=== PATIENT | male | born 1990 ===

== ENCOUNTER 2017-10-10 00:34 | Emergency (ER) | payer MEDICAID, OTHER ==
[2017-10-10 00:34] VITALS: BMI 25.7
[2017-10-10 00:43] VITALS: TEMP 98
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
[2017-10-10 01:27] LABS: BASO # 0.1 K/uL (0.0-0.2); BASO % 0.7 % (0.0-2.0); EOS # 0.3 K/uL (0.0-0.7); EOS % 2.8 % (0.0-4.0); HEMATOCRIT 44.3 % (35.0-51.0); LYMPH # 2.2 K/uL (1.0-4.3); LYMPH % 20.8 % (20.0-40.0); MEAN CELL VOLUME 84.9 fL (80.0-94.0); MEAN CORPUSCULAR HEMOGLOBIN 29.1 pg (27.0-31.0); MEAN CORPUSCULAR HGB CONC 34.3 g/dL (33.0-37.0); MEAN PLATELET VOLUME 8.8 fL (7.2-11.7); MONO # 0.8 K/uL (0.0-0.8); MONO % 7.4 % (0.0-10.0); RED CELL DISTRIBUTION WIDTH 14.1 % (11.5-14.5); WHITE BLOOD COUNT 10.5 K/uL (4.8-10.8)
[2017-10-10 01:41] LABS: ALB/GLOB RATIO 1.1 (1.0-2.1); ALCOHOL SERUM < 10 mg/dl (0-10); ALKALINE PHOSPHATASE 88 U/L (38-126); ALT/SGPT 166 U/L (21-72); AST/SGOT 329 U/L (17-59); BILIRUBIN,TOTAL 0.5 mg/dL (0.2-1.3); BLOOD UREA NITROGEN 14 mg/dL (9-20); CALCIUM 8.6 mg/dl (8.6-10.4); CARBON DIOXIDE 30 mmol/L (22-30); CHLORIDE 103 mmol/L (98-107); GFR AFRICAN-AMERICAN > 60; GLUCOSE,RANDOM 93 mg/dL (75-110); POTASSIUM 3.4 mmol/L (3.6-5.2); SODIUM 140 mmol/L (132-148); TOTAL PROTEIN 8.1 g/dL (6.3-8.3)
[2017-10-10 02:45] LABS: RBC URINE < 1 /hpf (0-3); URINE BILIRUBIN NEGATIVE (NEGATIVE); URINE BLOOD NEGATIVE (NEGATIVE); URINE COLOR Yellow (YELLOW); URINE GLUCOSE (UA) NORMAL (Normal); URINE KETONE NEGATIVE (NEGATIVE); URINE LEUKOCYTE ESTERASE NEG Leu/uL (Negative); URINE PROTEIN NEGATIVE (NEGATIVE); URINE UROBILINOGEN NORMAL mg/dL (0.2-1.0); WBC URINE 1 /hpf (0-5)
[2017-10-10 09:14] VITALS: BP 123/81; PULSE 68; RESP 16; O2SAT 100
== END 2017-10-10 09:21 | disposition home or self-care (01) ==
LOC: C.ER 00:34
DX: F16.10 Hallucinogen abuse, uncomplicated (principal); Z87.891 Personal history of nicotine dependence
CPT/HCPCS: 80053; 80320; 80324; 80345; 80346; 80349; 80353; 80358; 80361; 81001; 83992; 85025; 96372; 99285; J1630; J2060

== ENCOUNTER 2017-10-17 05:11 | Emergency (ER) | payer OTHER ==
[2017-10-17] MEDS ORDERED: DiphenhydrAMINE 50 mg/ml Inj ONE (05:38)
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
[2017-10-17] MEDS ORDERED: DiphenhydrAMINE 50 mg/ml Inj IM STA (05:45)
[2017-10-17 05:46] VITALS: BMI 25.8
[2017-10-17 06:33] LABS: RBC URINE 1 /hpf (0-3); URINE BACTERIA RARE (<OCC); URINE BILIRUBIN NEGATIVE (NEGATIVE); URINE BLOOD NEGATIVE (NEGATIVE); URINE COLOR Yellow (YELLOW); URINE GLUCOSE (UA) NORMAL (Normal); URINE KETONE NEGATIVE (NEGATIVE); URINE LEUKOCYTE ESTERASE NEG Leu/uL (Negative); URINE PROTEIN NEGATIVE (NEGATIVE); URINE UROBILINOGEN NORMAL mg/dL (0.2-1.0); WBC URINE 1 /hpf (0-5)
[2017-10-17 06:33] LABS: BASO % 0.5 % (0.0-2.0); EOS # 0.2 K/uL (0.0-0.7); EOS % 1.7 % (0.0-4.0); HEMATOCRIT 42.3 % (35.0-51.0); LYMPH # 1.2 K/uL (1.0-4.3); LYMPH % 12.1 % (20.0-40.0); MEAN CELL VOLUME 85.7 fL (80.0-94.0); MEAN CORPUSCULAR HEMOGLOBIN 29.2 pg (27.0-31.0); MEAN PLATELET VOLUME 8.5 fL (7.2-11.7); MONO # 0.7 K/uL (0.0-0.8); MONO % 7.2 % (0.0-10.0); RED CELL DISTRIBUTION WIDTH 13.8 % (11.5-14.5); WHITE BLOOD COUNT 9.9 K/uL (4.8-10.8)
[2017-10-17 06:46] LABS: ALB/GLOB RATIO 1.6 (1.0-2.1); ALCOHOL SERUM < 10 mg/dl (0-10); ALKALINE PHOSPHATASE 74 U/L (38-126); ALT/SGPT 58 U/L (21-72); AST/SGOT 30 U/L (17-59); BILIRUBIN,TOTAL 0.3 mg/dL (0.2-1.3); BLOOD UREA NITROGEN 13 mg/dL (9-20); CALCIUM 8.1 mg/dl (8.6-10.4); CARBON DIOXIDE 27 mmol/L (22-30); CHLORIDE 97 mmol/L (98-107); GFR AFRICAN-AMERICAN > 60; GLUCOSE,RANDOM 91 mg/dL (75-110); POTASSIUM 3.4 mmol/L (3.6-5.2); SODIUM 134 mmol/L (132-148); TOTAL PROTEIN 6.6 g/dL (6.3-8.3)
[2017-10-17 07:55] VITALS: TEMP 98.1
[2017-10-17 11:16] VITALS: BP 112/64; PULSE 60; RESP 13; O2SAT 96
== END 2017-10-17 12:23 | disposition home or self-care (01) ==
LOC: C.ER 05:11
DX: F19.10 Other psychoactive substance abuse, uncomplicated (principal); I10 Essential (primary) hypertension; F17.210 Nicotine dependence, cigarettes, uncomplicated
CPT/HCPCS: 80053; 80320; 80324; 80345; 80346; 80349; 80353; 80358; 80361; 81001; 83992; 85025; 96372; 99285; J1200; J2060; J3486

== ENCOUNTER 2017-12-14 23:45 | Emergency (ER) | payer OTHER ==
[2017-12-14 23:46] VITALS: BMI 25.8
[2017-12-15 00:17] VITALS: O2SAT 97
--- NOTE | 2017-12-15 02:07 | C.PDOC ---
History Of Present Illness 27 year old male presents to the ED for evaluation of chronic right ankle pain status post fall injury 2 years ago. Patient states that he has not been follow up with doctors for his ankle pain. He complains of pain with weightbearing. He is requesting narcotic pain medication. No other acute complaints at this time. Time Seen by Provider: 12/15/17 00:34 Chief Complaint (Nursing): Lower Extremity Problem/Injury History Per: Patient History/Exam Limitations: no limitations Onset/Duration Of Symptoms: Other (Chronic x2 years) Current Symptoms Are (Timing): Still Present Recent travel outside of the [place]: No - Ankle/Foot Description Of Injury: Fell (2 years ago) Past Medical History Reviewed: Historical Data, Nursing Documentation, Vital Signs Vital Signs: Last Vital Signs Temp 98 F 12/15/17 02:52 Pulse 78 12/15/17 02:52 Resp 20 12/15/17 02:52 BP 130/80 12/15/17 02:52 Pulse Ox 97 12/15/17 04:41 - Medical History PMH: Anxiety, Arthritis (right ankle), Asthma ( A CHILD), Back Problems ( Chronic), Bipolar Disorder, Depression, HTN, Schizophrenia, Chronic Pain (Back) Denies: Chronic Kidney Disease - [facility] Procedures APPLICATION OF SPLINT (03/18/14) ELEVATE SKULL FX FRAGMNT (08/20/14) GROUP PSYCHOTHERAPY (11/26/16) INDIVIDUAL PSYCHOTHERAPY, SUPPORTIVE (11/26/16) INJECT/INFUSE NEC (08/14/14) MEDICATION MANAGEMENT (11/26/16) Family History: States: Unknown Family Hx - Social History Hx Tobacco Use: Yes Hx Alcohol Use: Yes Hx Substance Use: Yes - Immunization History Hx Tetanus Toxoid Vaccination: Yes Hx Influenza Vaccination: Yes Hx Pneumococcal Vaccination: No Review Of Systems Constitutional: Negative for: Fever, Chills ENT: Negative for: Ear Pain, Throat Pain Cardiovascular: Negative for: Chest Pain Musculoskeletal: Positive for: Other (Ankle pain, Rt) Skin: Negative for: Rash Neurological: Negative for: Headache Physical Exam - Physical Exam Appears: Well, Non-toxic, No Acute Distress Skin: Normal Color, Warm, Dry Head: Atraumatic, Normacephalic Eye(s): bilateral: Normal Inspection, PERRL, EOMI Oral Mucosa: Moist Back: Normal Inspection Extremity: Other (right ankle bulky jt -mildly tender, no effusion, no erythema , no calf tenderness, good cap refill) Neurological/Psych: Oriented x3, Normal Speech Gait: Steady ED Course And Treatment O2 Sat by Pulse Oximetry: 97 Progress Note: Advised patient to follow up with orthapedic surgeon. Disposition Counseled Patient/Family Regarding: Diagnosis, Need For Followup - Disposition Referrals: Jackie Brice MD [Staff Provider] - Disposition: HOME/ ROUTINE Disposition Time: 02:05 Condition: STABLE Additional Instructions: Please follow up with Ortho- Call Dr Brice as preferred tylenol or advil for pain Return to ER if worse Instructions: Joint Pain Forms: [facility] (Macedonian) - Clinical Impression Clinical Impression: Joint pain, Ankle pain - Scribe Statement The provider has reviewed the documentation as recorded by the Scribe (Shane De La Cruz) Provider Attestation: All medical record entries made by the Scribe were at my direction and personally dictated by me. I have reviewed the chart and agree that the record accurately reflects my personal performance of the history, physical exam, medical decision making, and the department course for this patient. I have also personally directed, reviewed, and agree with the discharge instructions and disposition.
[2017-12-15 02:53] VITALS: BP 130/80; PULSE 78; RESP 20; TEMP 98
== END 2017-12-15 02:52 | disposition home or self-care (01) ==
LOC: C.ER 23:45
DX: M25.571 Pain in right ankle and joints of right foot (principal)

== ENCOUNTER 2018-02-22 06:28 | Emergency (ER) | payer MEDICAID, OTHER ==
[2018-02-22 06:28] VITALS: BMI 25.8
[2018-02-22 06:38] VITALS: RESP 20; O2SAT 100
[2018-02-22] MEDS ORDERED: Lidocaine 1% Inj (20ml) INFIL STA (07:22)
[2018-02-22] MEDS ORDERED: Bacitracin 500 Units/gm Oint Foilpak UD TOP ONE (07:22)
[2018-02-22] MEDS ORDERED: Bacitracin 500 Units/gm Oint Foilpak UD ONE (07:27)
[2018-02-22] MEDS ORDERED: Lidocaine Hydrochloride 5 ML INJ ONE (07:28)
--- NOTE | 2018-02-22 08:25 | C.PDOC ---
History Of Present Illness 27-year-old male, presents to the emergency department with complaints of laceration to right wrist. Patient states she was at a friends house, trying to fix a window but the glass broke and patient sustained a laceration to volar aspect of right wrist. Denies numbness/weakness, foreign body sensation. No other injuries. Time Seen by Provider: 02/22/18 07:06 Chief Complaint (Nursing): Abnormal Skin Integrity History Per: Patient History/Exam Limitations: no limitations Onset/Duration Of Symptoms: Other (prior to arrival) Current Symptoms Are (Timing): Still Present Past Medical History Reviewed: Historical Data, Nursing Documentation, Vital Signs Vital Signs: Last Vital Signs Temp 98.9 F 02/22/18 08:42 Pulse 68 02/22/18 08:42 Resp 20 02/22/18 08:42 BP 134/84 02/22/18 08:42 Pulse Ox 100 02/22/18 08:52 - Medical History PMH: Anxiety, Arthritis (right ankle), Asthma, Back Problems (Chronic), Bipolar Disorder, Depression, HTN, Schizophrenia, Chronic Pain (Back) - [facility] Procedures APPLICATION OF SPLINT (03/18/14) ELEVATE SKULL FX FRAGMNT (08/20/14) GROUP PSYCHOTHERAPY (11/26/16) INDIVIDUAL PSYCHOTHERAPY, SUPPORTIVE (11/26/16) INJECT/INFUSE NEC (08/14/14) MEDICATION MANAGEMENT (11/26/16) Family History: States: No Known Family Hx - Social History Hx Tobacco Use: Yes Hx Alcohol Use: Yes Hx Substance Use: Yes - Immunization History Hx Tetanus Toxoid Vaccination: Yes Hx Influenza Vaccination: No Hx Pneumococcal Vaccination: No Review Of Systems Musculoskeletal: Positive for: Other (right wrist laceration) Neurological: Negative for: Weakness, Numbness Physical Exam - Physical Exam Appears: Non-toxic, No Acute Distress Skin: Normal Color, Warm, Dry, No Rash Head: Atraumatic, Normacephalic Eye(s): bilateral: Normal Inspection Nose: Normal Oral Mucosa: Moist Lips: Normal Appearing Neck: Normal ROM Chest: Symmetrical Extremity: Normal ROM, No Tenderness, No Deformity, No Swelling, Other (3cm linear laceration to volar aspect of right base palm thumb side no active bleeding) Neurological/Psych: Oriented x3, Normal Speech Gait: Steady ED Course And Treatment O2 Sat by Pulse Oximetry: 100 (RA) Pulse Ox Interpretation: Normal Laceration - Laceration Repair wrist Wound Length (In cm): 3cm Description Of Wound: Linear (No tendon injury) Anesthesia: Lidocaine 1% Wound Examination: Irrigated With Saline, No FB With Wound Exploration, No Tendon Injury With Wound Exploration Wound Closure: Suture Suture Technique And Material Used: Nylon (4-0) Wound Complexity: Simple Medical Decision Making Medical Decision Making: Impression: Laceration right wrist Plan: * Laceration repair * XR R wirst Progress: Xray shows no foreign body. Consent obtained for laceration repair. Patient tolerated well. Bacitracin applied and wound dressed. Patient will be discharged for outpatient f.u with PMD. Asked to return in 8-10 days for suture removal. Pt agreeable with plan, all questions answered. Disposition Counseled Patient/Family Regarding: Diagnosis, Need For Followup - Disposition Referrals: Dave Valadez MD [Non-Staff] - Disposition: HOME/ ROUTINE Disposition Time: 08:40 Condition: GOOD Additional Instructions: Remove dressing in 24 hours. Keep area clean and dry. May wash gently with soap and water, do not use alcohol or iodine solution. Change dressing 1-2 times daily. Return to ER if fever occurs, redness or swelling around wound, pus in the wound. Please follow up with your primary doctor, clinic, or urgent care for suture removal in 8- 10 days Retire el aderezo en 24 horas. Mantenga el uriel limpia y seca. Puede lavarse suavemente con agua y jabn, no use alcohol o solucin de yodo. Cambie el aderezo 1-2 veces al da. Vuelva a la serge de emergencias si presenta fiebre, enrojecimiento o hinchazn alrededor de la herida, pus en la herida. Realice un seguimiento con soriano mdico primario, clnica o atencin urgente para la extracci n de suturas en 8-10 guajardo. Instructions: Laceration Repair With Stitches (DC) Forms: [facility] (Latvian) - Clinical Impression Clinical Impression: Hand laceration - Scribe Statement The provider has reviewed the documentation as recorded by the Scribe (Mena Bunn) All medical record entries made by the Scribe were at my direction and personally dictated by me. I have reviewed the chart and agree that the record accurately reflects my personal performance of the history, physical exam, medical decision making, and the department course for this patient. I have also personally directed, reviewed, and agree with the discharge instructions and disposition.
[2018-02-22 08:45] VITALS: BP 134/84; PULSE 68; TEMP 98.9
--- NOTE | 2018-02-22 09:52 | RAD ---
PROCEDURE: Right Wrist Radiographs. HISTORY: laceration w. glass possible foreign body COMPARISON: None. FINDINGS: BONES: No acute fracture. JOINTS: Unremarkable. SOFT TISSUES: No radiopaque foreign body. OTHER FINDINGS: None. IMPRESSION: No evidence of osseous injury or retained radiopaque foreign.
== END 2018-02-22 08:47 | disposition home or self-care (01) ==
LOC: C.ER 06:28
DX: S61.511A Laceration without foreign body of right wrist, initial encounter (principal); W25.XXXA Contact with sharp glass, initial encounter; Y92.89 Other specified places as the place of occurrence of the external cause

== ENCOUNTER 2019-01-15 13:56 | Emergency (ER) | payer MEDICAID, OTHER ==
[2019-01-15 13:57] VITALS: BMI 25.8
[2019-01-15 14:31] VITALS: BP 127/76; PULSE 77; RESP 20; TEMP 98.6; O2SAT 98
[2019-01-15] MEDS ORDERED: Tmp-Smz 800 mg-160 mg DS Tab PO STA (15:06)
[2019-01-15] MEDS ORDERED: Tmp-Smz 800 mg-160 mg DS Tab ONE (15:17)
--- NOTE | 2019-01-15 18:14 | C.PDOC ---
History Of Present Illness 28 year old male presents to ED with complaint of a boil to his left medial cheek that has been in various phases for the last 2 months. Patient has a PMHx of schizophrenia and alcohol abuse. Patient requests another round of antibiotics and claims that he squeezes the boil constantly. Patient denies any weakness, numbness, fever, and chills. Time Seen by Provider: 01/15/19 15:02 Chief Complaint (Nursing): Abnormal Skin Integrity History Per: Patient History/Exam Limitations: no limitations Onset/Duration Of Symptoms: Other (2 months) Current Symptoms Are (Timing): Still Present Past Medical History Reviewed: Historical Data, Nursing Documentation, Vital Signs Vital Signs: Last Vital Signs Temp 98.6 F 01/15/19 14:29 Pulse 77 01/15/19 14:29 Resp 20 01/15/19 14:29 BP 127/76 01/15/19 14:29 Pulse Ox 98 01/15/19 14:29 - Medical History PMH: Anxiety, Arthritis (right ankle), Asthma, Back Problems (Chronic), Bipolar Disorder, Depression, HTN, Schizophrenia, Chronic Pain (Back) Denies: Chronic Kidney Disease - [facility] Procedures APPLICATION OF SPLINT (03/18/14) ELEVATE SKULL FX FRAGMNT (08/20/14) GROUP PSYCHOTHERAPY (11/26/16) INDIVIDUAL PSYCHOTHERAPY, SUPPORTIVE (11/26/16) INJECT/INFUSE NEC (08/14/14) MEDICATION MANAGEMENT (11/26/16) Family History: States: Unknown Family Hx - Social History Hx Tobacco Use: Yes Hx Alcohol Use: Yes Hx Substance Use: Yes - Immunization History Hx Tetanus Toxoid Vaccination: Yes Hx Influenza Vaccination: No Hx Pneumococcal Vaccination: No Review Of Systems Constitutional: Negative for: Fever, Chills, Weakness ENT: Positive for: Other (boil to the left medial cheek) Skin: Negative for: Rash Neurological: Negative for: Weakness, Numbness, Dizziness Physical Exam - Physical Exam Appears: Other (bizarre, difficulty being redirected) Skin: Normal Color, Warm, Dry Head: Atraumatic, Normacephalic, Other (small,raised boil on the left medial cheek tender to palpation, no fluctuance, no surrounding redness) Neck: Normal ROM, Supple Chest: Symmetrical, No Deformity Respiratory: No Accessory Muscle Use Neurological/Psych: Oriented x3, Normal Speech, Normal Cognition ED Course And Treatment O2 Sat by Pulse Oximetry: 98 (in RA) Progress Note: Patient given Bactrim PO and Motrin PO. Disposition Doctor Will See Patient In The: Office Counseled Patient/Family Regarding: Studies Performed, Diagnosis - Disposition Referrals: [facility] [Outside] [facility] [Outside] [facility] [Outside] [facility] [Outside] Disposition: HOME/ ROUTINE Disposition Time: 14:00 Condition: GOOD Additional Instructions: warm packs 1/2 hour per hour Bactrim DS (antibiotic) 1 tab every 12 hours for 1 week Motrin/Advil 400-600 mg every 6 hours as needed for local pain follow-up in our outpatient Family Practice Clinic and/or Surgical Clinic in 3-4 days Call for an appointment and availability. Prescriptions: Sulfamethoxazole/Trimethoprim [Bactrim DS 800 mg-160 mg] 1 tab PO BID #13 tab Instructions: Boil Forms: [facility] (Bhutanese) - Clinical Impression Clinical Impression: Skin lesion - Scribe Statement The provider has reviewed the documentation as recorded by the Scribe (Brenda Dwyer) All medical record entries made by the Scribe were at my direction and personally dictated by me. I have reviewed the chart and agree that the record accurately reflects my personal performance of the history, physical exam, medical decision making, and the department course for this patient. I have also personally directed, reviewed, and agree with the discharge instructions and disposition.
== END 2019-01-15 15:19 | disposition home or self-care (01) ==
LOC: C.ER 13:56
DX: L98.9 Disorder of the skin and subcutaneous tissue, unspecified (principal)

== ENCOUNTER 2019-02-08 23:08 | Emergency (ER) | payer OTHER ==
[2019-02-08 23:08] VITALS: BMI 25.8
[2019-02-08 23:23] VITALS: BP 141/92; PULSE 98; TEMP 99; O2SAT 97
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
[2019-02-09 00:05] VITALS: RESP 16
== END 2019-02-09 00:05 | disposition home or self-care (01) ==
LOC: C.ER 23:08
DX: S46.911A Strain of unspecified muscle, fascia and tendon at shoulder and upper arm level, right arm, initial encounter (principal); Y08.89XA Assault by other specified means, initial encounter; G89.29 Other chronic pain; M25.561 Pain in right knee

== ENCOUNTER 2019-02-17 16:41 | Emergency (ER) | payer OTHER ==
[2019-02-17 16:42] VITALS: BMI 25.8
[2019-02-17 16:46] VITALS: BP 116/80; PULSE 73; RESP 18; TEMP 98
[2019-02-17] MEDS ORDERED: Tobramycin 0.3% OPHT SOLN OD STA (17:35)
--- NOTE | 2019-02-17 17:49 | C.PDOC ---
History Of Present Illness 28 y/o male pt presents to the ER c/o right pink eye for x3 days. Associated sx includes yellow d/c. Pt denies blurry vision, change in vision, eye pain and any associated sx or complaints at this time. Time Seen by Provider: 02/17/19 17:29 Chief Complaint (Nursing): Eye Problem History Per: Patient History/Exam Limitations: no limitations Onset/Duration Of Symptoms: Days (x3) Current Symptoms Are (Timing): Still Present Past Medical History Reviewed: Historical Data, Nursing Documentation, Vital Signs Vital Signs: Last Vital Signs Temp 98 F 02/17/19 16:44 Pulse 73 02/17/19 16:44 Resp 18 02/17/19 16:44 BP 116/80 02/17/19 16:44 Pulse Ox 98 02/17/19 16:44 - Medical History PMH: Anxiety, Arthritis (right ankle), Asthma, Back Problems (Chronic), Bipolar Disorder, Depression, HTN, Migraine, Schizophrenia, Chronic Pain (Back) - [facility] Procedures APPLICATION OF SPLINT (03/18/14) ELEVATE SKULL FX FRAGMNT (08/20/14) GROUP PSYCHOTHERAPY (11/26/16) INDIVIDUAL PSYCHOTHERAPY, SUPPORTIVE (11/26/16) INJECT/INFUSE NEC (08/14/14) MEDICATION MANAGEMENT (11/26/16) Family History: States: Unknown Family Hx - Social History Hx Tobacco Use: Yes Hx Alcohol Use: Yes Hx Substance Use: Yes (marijuana) - Immunization History Hx Tetanus Toxoid Vaccination: Yes Hx Influenza Vaccination: No Hx Pneumococcal Vaccination: No Review Of Systems Except As Marked, All Systems Reviewed And Found Negative. Constitutional: Negative for: Fever, Chills Eyes: Positive for: Other (right pink eye with yellow discharge; no blurry vision). Negative for: Pain, Vision Change Physical Exam - Physical Exam Appears: Non-toxic, No Acute Distress Skin: Warm, Dry Head: Normacephalic Eye(s): bilateral: PERRL, EOMI, right: Other (conjunctiva erythema with mild swelling; no periorbital swelling or erythema; no active discharge) Neurological/Psych: Oriented x3, Normal Speech ED Course And Treatment O2 Sat by Pulse Oximetry: 98 (RA) Pulse Ox Interpretation: Normal Progress Note: plans: -- tobrex. -- Pt was referred to ophthalmology Disposition - Disposition Referrals: Hao,Rodrigo [Staff Provider] - Disposition: HOME/ ROUTINE Disposition Time: 17:35 Condition: STABLE Additional Instructions: Follow up with PMD and Gauge Checker within 1-2 days. Return to ED if feel worse. Prescriptions: Tobramycin 0.3% [Tobrex 0.3% Ophth Soln] 1 drop OU Q2 #1 bottle Instructions: Conjunctivitis ([place]) (DC) Forms: [facility] ([place]) - Clinical Impression Clinical Impression: Conjunctivitis - PA / WAGON PERSON / Resident Statement MD/ has reviewed & agrees with the documentation as recorded. - Scribe Statement The provider has reviewed the documentation as recorded by the Maisha Jasso Do All medical record entries made by the Scribe were at my direction and personally dictated by me. I have reviewed the chart and agree that the record accurately reflects my personal performance of the history, physical exam, medical decision making, and the department course for this patient. I have also personally directed, reviewed, and agree with the discharge instructions and disposition.
[2019-02-17 20:04] VITALS: O2SAT 98
== END 2019-02-17 18:17 | disposition home or self-care (01) ==
LOC: C.ER 16:41
DX: H10.9 Unspecified conjunctivitis (principal); F20.9 Schizophrenia, unspecified; I10 Essential (primary) hypertension; Z72.0 Tobacco use

== ENCOUNTER 2019-03-01 17:56 | Emergency (ER) | payer MEDICAID, OTHER ==
[2019-03-01 17:56] VITALS: BMI 25.8
[2019-03-01 18:19] VITALS: BP 122/80; PULSE 74; RESP 18; TEMP 98.9; O2SAT 98
== END 2019-03-01 18:15 | disposition left against medical advice (07) ==
LOC: C.ER 17:56
DX: Z02.89 Encounter for other administrative examinations (principal); J34.9 Unspecified disorder of nose and nasal sinuses

== ENCOUNTER 2019-03-08 20:14 | Emergency (ER) | payer OTHER ==
[2019-03-08 20:15] VITALS: BMI 25.8
[2019-03-08 20:45] VITALS: BP 123/77; PULSE 77; RESP 16; TEMP 100; O2SAT 95
[2019-03-08] MEDS ORDERED: Bacitracin 500 Units/gm Oint Foilpak UD TOP STA (21:01)
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
[2019-03-08] MEDS ORDERED: Bacitracin 500 Units/gm Oint Foilpak UD ONE (21:26)
== END 2019-03-08 21:32 | disposition home or self-care (01) ==
LOC: C.ER 20:14
DX: S40.812A Abrasion of left upper arm, initial encounter (principal); S10.91XA Abrasion of unspecified part of neck, initial encounter; X58.XXXA Exposure to other specified factors, initial encounter; B00.1 Herpesviral vesicular dermatitis